=== PATIENT | female | born 1995 | race Caucasian/White ===

== ENCOUNTER 2022-01-25 10:16 | Outpatient (CLI) | payer BC, SELFPAY ==
--- NOTE | ~2022-01-25 | US_ITS ---
US breast LT limited DATE: 01/25/2022 10:44 INDICATION: Patient felt a lump at 11:00, since resolved TECHNIQUE: Real-time imaging targeted at area of previous complaint of left breast lump at 11:00 COMPARISON: None FINDINGS: No suspicious mass or shadowing, cyst or other significant sonographic abnormality is ident ified at the area of prior clinical complaint of lump at 11:00. IMPRESSION: BI-RADS Category 1: Negative Recommendation: Routine mammographic screening beginning at age 40 Reviewed, dictated and finalized at [facility]. Reviewed, dictated and finalized at location [facility].
== END 2022-01-25 10:17 | disposition home or self-care (01) ==
LOC: ANHIMG 10:22
PROVIDERS: PCP Physician Assistant; Visit Provider Physician Assistant
DX: N63.20 Unspecified lump in the left breast, unspecified quadrant (principal)
CPT/HCPCS: 76642

== ENCOUNTER 2022-01-27 10:01 | Emergency (ER) | payer BC, SELFPAY ==
[2022-01-27] VITALS (14 sets, daily range): BP systolic 118–148; BP diastolic 72–84; PULSE 57–80; RESP 10–25; TEMP 36.3–36.7; O2SAT 99–100
--- NOTE | ~2022-01-27 | XR_ITS ---
EXAMINATION: XR chest 2V DATE: 01/27/2022 10:40 INDICATION: Chest pain TECHNIQUE: PA and lateral views of the chest are obtained. COMPARISON: None available FINDINGS: The lungs are free of acute opacities. There is no pleural effusion or pneumothorax. The ca rdiomediastinal silhouette is normal. The visualized bones and soft tissues are unremarkable. IMPRESSION: 1. No acute cardiopulmonary abnormality. Reviewed, dictated and finalized at [facility].
--- NOTE | 2022-01-27 10:03 | ECG_ITS ---
Measurements Intervals Holcomb Rate: 75 P: 18 WA: 144 QRS: 41 QRSD: 97 T: 96 QT: 358 QTc: 400 Interpretive Statements SINUS RHYTHM NONSPECIFIC ST & T-WAVE ABNORMALITY- HIGH LATERAL LEADS BASELINE ARTIFACT- I, AVR, AVL BORDERLINE ECG Electronically Signed On 01-27-2022 12:28:03 CDT by Terry Gee D.O.
[2022-01-27 10:56] LABS: Basophils Absolute Auto 0.1 K/mm3 (0.0-0.1); Basophils Percent Auto 1.6 % (0.2-1.2); Eosinophils Absolute Auto 0.2 K/mm3 (0-0.3); Eosinophils Percent Auto 3.3 % (0-4.4); Hematocrit 43.4 % (37.0-47.0); Hemoglobin 13.7 g/dL (12.0-15.0); Immature Granulocyte Absolute 0.01 K/mm3 (0.00-0.031); Immature Granulocyte Percent A 0.1 % (0-0.5); Lymphocytes Absolute Auto 1.62 K/mm3 (0.9-3.2); Lymphocytes Percent Auto 24.2 % (18.3-44.2); Mean Corpuscular HGB Conc 31.6 g/dl (32-36); Mean Corpuscular Hemoglobin 27.9 pg (26-34); Mean Corpuscular Volume 88.4 fl (80-100); Monocytes Absolute Auto 0.5 K/mm3 (0.1-0.6); Monocytes Percent Auto 7.3 % (2.6-8.5); Neutrophils Absolute Auto 4.3 K/mm3 (1.3-6.7); Neutrophils Percent Auto 63.5 % (45.5-73.1); Platelet Count Result 264 k/mm3 (150-375); Red Blood Count 4.91 M/mm3 (4.2-5.4); White Blood Count 6.7 K/mm3 (4.5-10.0)
[2022-01-27 11:11] LABS: INR 1.1; Prothrombin Time 13.9 Seconds (11.1-14.7)
[2022-01-27 11:12] LABS: Alanine Aminotransferase 13 U/L (4-35); Albumin Level 4.6 g/dL (3.5-5.1); Alkaline Phosphatase 56 U/L (38-126); Anion Gap 5 mmol/L (8-16); Aspartate Amino Transferase 21 U/L (14-36); Bilirubin,Total 0.5 mg/dL (0.2-1.3); Blood Urea Nitrogen 15 mg/dL (7-17); Calcium 9.4 mg/dL (8.4-10.2); Carbon Dioxide 28 mmol/L (22-30); Chloride 106 mmol/L (98-107); Estimated CRCL calculation 117 ml/min; Estimated Glomerular Filt Rate > 60; Glucose 98 mg/dL (65-110); Lipase 50 U/L (23-300); Partial Thromboplastin Time 27.1 SECONDS (22.3-36.8); Potassium 4.2 mmol/L (3.4-5.0); Sodium 139 mmol/L (137-145)
[2022-01-27 11:23] LABS: Troponin I < 0.012 ng/mL (0.000-0.034)
--- NOTE | 2022-01-27 11:53 | ED.CHESTPAIN ---
HPI - Chest Pain General Chief Complaint: Chest Pain <BJORN Capone Last Filed: 01/27/22 14:01> Stated Complaint: cp <BJORN Capone Last Filed: 01/27/22 14:01> Time Seen by Provider: 01/27/22 11:11 <BJORN Capone Last Filed: 01/27/22 14:01> Source: patient <BJORN Capone Last Filed: 01/27/22 14:01> Mode of arrival: ambulatory <BJORN Capone Last Filed: 01/27/22 14:01> Limitations: no limitations <BJORN Capone Last Filed: 01/27/22 14:01> History of Present Illness HPI narrative: Patient is a 26 y/o female who presents to the ED with report of bilateral chest pain for the past 1 week. Patient reports having intermittent pain across her chest for the past 1 week. She states the pain lasts for few seconds at a time and is sharp but still mild in severity. She has not tried any pain medicine for the pain. She saw her primary care doctor about this and was told it may be due to hormones. Over the last 2 days, she has had issues with her breathing reportedly. She denies having any actual shortness of breath or difficultly breathing, but reports she has been more aware of her breathing and feels like she is breathing 'unnaturally.' No fever, chills, cough, cold symptoms, nausea, vomiting, abdominal pain, BLE pain or edema. Patient mentions she was recently restarted on Viibryd for her depression around the time the pain first started occuring. She has since stopped taking this. <BJORN Capone Last Filed: 01/27/22 14:01> Related Data Allergies/Adverse Reactions: Allergies Allergy/AdvReac Type Severity Reaction Status Date / Time clarithromycin [From Biaxin] Allergy Anaphylaxis Verified 01/27/22 11:14 <BJORN Capone Last Filed: 01/27/22 14:01> Review of Systems Review of Systems: CONSTITUTIONAL: Denies fever, chills, or sweats. ENT: Denies rhinorrhea, congestion. CARDIOVASCULAR: Reports pain across chest. Denies palpitations, or BLE edema. RESPIRATORY: Reports unnatural breathing. Denies cough, difficulty breathing, SOB. GASTROINTESTINAL: Denies abdominal pain, nausea, vomiting, or diarrhea. MUSCULOSKELETAL: Denies BLE pain, back pain. NEUROLOGIC: Denies headache, numbness, or weakness. <Emily Giles PA-C - Last Filed: 01/27/22 14:01> All systems reviewed & are unremarkable except as noted in HPI and below <Emily Giles PA-C - Last Filed: 01/27/22 14:01> PMFSH Past Medical History Medical History: Medical History (Updated 01/27/22 @ 13:58 by Emily Giles PA-C) Anxiety Depression <Emily Giles PA-C - Last Filed: 01/27/22 14:01> Surgical History Surgical History: Surgical History (Updated 01/27/22 @ 13:58 by Emily Giles PA-C) No pertinent past surgical history <Emily Giles PA-C - Last Filed: 01/27/22 14:01> Social History Social History: Social History (Updated 01/27/22 @ 13:58 by Emily Giles PA-C) Smoking status: Never smoker <Emily Giles PA-C - Last Filed: 01/27/22 14:01> Exam Narrative: GENERAL: Well appearing, well-nourished, non-toxic, in no acute distress. HEAD: Normocephalic, atraumatic. NECK: Supple. No adenopathy, no masses. RESPIRATORY: Airway patent, respirations nonlabored. Clear to auscultation bilaterally, no rales, rhonchi, wheezing. CARDIOVASCULAR: Regular rate and rhythm without murmurs, rubs, or gallops. Peripheral pulses 2+ and equal bilaterally. ABDOMINAL: Soft, nontender, nondistended, no hepatosplenomegaly. Normoactive BS. MUSCULOSKELETAL: Moves all extremities. Strength/ROM intact without gross deformities or TTP. No edema. No calf tenderness. No chest wall tenderness to palpation. SKIN: Warm, dry, normal color. No rashes. NEURO: A&O X3. Speech clear. Cranial nerves II-XII grossly intact. Steady gait. No ataxic movements. PSYCHIATRIC: Appropriate mood and affect. Normal interaction. <Emily Giles PA-C - Last Filed:
[2022-01-27 13:35] LABS: Troponin I < 0.012 ng/mL (0.000-0.034)
== END 2022-01-27 14:09 | disposition home or self-care (01) ==
PROVIDERS: Physician Assistant; Emergency Provider Emergency Medicine; PCP Physician Assistant
DX: R07.89 Other chest pain (principal); F41.9 Anxiety disorder, unspecified; F32.A Depression, unspecified; R94.31 Abnormal electrocardiogram [ECG] [EKG]
CPT/HCPCS: 36415; 71046; 80053; 83690; 84484; 85025; 85380; 85610; 85730; 93005; 99284

== ENCOUNTER 2022-02-22 10:20 | Outpatient (CLI) | payer BC, SELFPAY ==
--- NOTE | ~2022-02-22 | US_ITS ---
US axilla RT DATE: 02/22/2022 10:53 INDICATION: Axillary lymphadenopathy TECHNIQUE: Real-time imaging and color flow imaging of the right axillary area COMPARISON: None FINDINGS: There is an indeterminate heterogeneous hypoechoic solid lesion with very prominent vascula rity on color flow imaging, situated in the right axilla, measuring up to 3 x 10 x 12 mm IMPRESSION: Irregular solid vascular mass of right axilla smell consider ultrasound-guided biopsy Reviewed, dictated and finalized at [facility]. Reviewed, dictated and finalized at [facility]. IMPRESSION: Irregular solid vascular mass of right axilla smell consider ultras ound-guided biopsy
== END 2022-02-22 10:21 | disposition home or self-care (01) ==
LOC: ANHIMG 10:20
PROVIDERS: PCP Physician Assistant; Visit Provider Physician Assistant
DX: R59.0 Localized enlarged lymph nodes (principal)
CPT/HCPCS: 76882

== ENCOUNTER 2022-02-25 12:55 | Outpatient (CLI) | payer BC, SELFPAY ==
--- NOTE | ~2022-02-25 | US_ITS ---
EXAMINATION: US_BXSTAXLIMG_US DATE: 02/25/2022 14:09 INDICATION: Right axillary mass. TECHNIQUE: The procedure including the risks, benefits, and alternatives was discussed with the patie nt. Risks discussed included bleeding and infection. The patient understood the risks and agreed to p roceed. The skin overlying the right axilla was prepped and draped in usual sterile fashion. Anesthe tic was administered with 1% lidocaine subcutaneously. An 18 gauge core biopsy needle was then used to obtain 3 core biopsy specimens under continuous sonographic guidance. The entry site was cleaned a nd dressed. There were no immediate complications. FINDINGS: Ultrasound images demonstrate the needle in a 13 x 3 x 10 mm mass in right axilla. IMPRESSION: 1. Ultrasound-guided core needle biopsy of a right axillary mass. Reviewed, dictated and finalized at location [facility].
== END 2022-02-25 12:56 | disposition home or self-care (01) ==
PROVIDERS: PCP Physician Assistant; Visit Provider Physician Assistant
DX: R22.2 Localized swelling, mass and lump, trunk (principal)
CPT/HCPCS: 20999; 76942; 88305

== ENCOUNTER 2023-01-06 17:58 | Emergency (ER) | payer BC, SELFPAY ==
[2023-01-06 18:06] VITALS: BP 132/91; PULSE 110; RESP 16; TEMP 36.9; O2SAT 100
--- NOTE | 2023-01-06 18:45 | ED.EYEPROB ---
HPI - Eye Problem General Chief complaint: Eye Problems <BJORN Davis Last Filed: 01/06/23 21:47> Stated complaint: conjunctivitis, blurry vision <BJORN Davis Last Filed: 01/06/23 21:47> Time Seen by Provider: 01/06/23 18:17 <BJORN Davis Last Filed: 01/06/23 21:47> Source: patient <BJORN Davis Last Filed: 01/06/23 21:47> Mode of arrival: ambulatory <BJORN Davis Last Filed: 01/06/23 21:47> Limitations: no limitations <BJORN Davis Last Filed: 01/06/23 21:47> History of Present Illness HPI Narrative: This is a 27-year-old female presents to the ED with chief complaint of bilateral eye irritation x3 days.. She was sent here by urgent care due to blurred vision. Patient states that her vision became blurry after they use the penlight during the exam. She states that this started with irritation primarily on the right which then moved to the left and now is in both eyes. Reports redness and drainage from both eyes. She states that she has had some swelling in the eyelids as well. She reports mainly having watery discharge from both eyes, however she does wake up in the mornings with goopy stuff coming out of the right eye. She states her 5-year-old son has had the exact same symptoms at home. She reports associated congestion and rhinorrhea. Denies fevers. Denies any injury to the eyes. <Phani Richey PA-C - Last Filed: 01/06/23 21:47> Related Data Allergies/adverse reactions: Allergies Allergy/AdvReac Type Severity Reaction Status Date / Time clarithromycin [From Biaxin] Allergy Anaphylaxis Verified 01/27/22 11:14 <BJORN Davis Last Filed: 01/06/23 21:47> Review of Systems Review of Systems: CONSTITUTIONAL: Denies fever, chills, or sweats. EYES: See HPI ENT: See HPI SKIN: Denies rash or itching. MUSCULOSKELETAL: Denies back pain, joint pain, or myalgia. NEUROLOGIC: Denies headache, numbness, dizziness, or weakness. PSYCHIATRIC: Denies anxiety or depression. <Phani Richey PA-C - Last Filed: 01/06/23 21:47> PMFSH Past Medical History Medical History: Medical History (Updated 01/07/23 @ 00:01 by Derek Park) Anxiety Depression <Phani Richey PA-C - Last Filed: 01/06/23 21:47> Surgical History Surgical History: Surgical History (Updated 01/27/22 @ 13:58 by Emily Cisneros PA-C) No pertinent past surgical history <Phani Richey PA-C - Last Filed: 01/06/23 21:47> Social History Social History: Social History (Updated 01/27/22 @ 13:58 by Emily Cisneros PA-C) Smoking status: Never smoker <Phani Richey PA-C - Last Filed: 01/06/23 21:47> Exam Narrative: GENERAL: Well-appearing, well-nourished, and in no acute distress. HEAD: Normocephalic, atraumatic. EYES: PERRLA and EOMI. bilateral conjunctival injection. Clear drainage bilaterally. Visual acuity 20/40 OD and 20/30 OS. ENT: Congestion and rhinorrhea present. Mucous membranes moist. Oropharynx without tonsillar hypertrophy exudate or other lesions. Postnasal drainage present. EXTREMITIES: Normal range of motion. No edema. SKIN: Warm, dry, no rash. NEURO: Alert and oriented x3. No focal deficits. PSYCH: Anxious mood and appropriate affect. 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 I performed all aspects of the MDM as documented. 27-year-old female presenting with bilateral eye redness, tearing, itchiness. Associated with viral URI symptoms. Her son has similar symptoms. Exam is consistent with viral conjunctivitis. No evidence of periorbital or o
[2023-01-06 20:35] VITALS: BP 130/89; PULSE 97; RESP 18; O2SAT 99
== END 2023-01-06 20:36 | disposition home or self-care (01) ==
PROVIDERS: Emergency Provider Physician Assistant; PCP Physician Assistant
DX: H10.33 Unspecified acute conjunctivitis, bilateral (principal)
CPT/HCPCS: 99283

== ENCOUNTER 2023-10-13 00:48 | Day surgery (SDC) | payer BC, SELFPAY ==
[2023-07-19 09:09] VITALS: BMI 29.9
[2023-09-22 11:10] VITALS: BMI 29.2
--- NOTE | 2023-10-11 08:34 | SUR.PREOP ---
Patient called regarding upcoming procedure. Reviewed preop instructions, appointment times, and procedure prep.
[2023-10-13 08:50] VITALS: BP 143/89; PULSE 105; RESP 20; TEMP 36.7; O2SAT 100
[2023-10-13] MEDS: LACTATED RINGERS 1,000 ML 150 ML IV CONT (09:08)
--- NOTE | 2023-10-13 09:18 | WPDANESEPPF ---
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 Patient Data Age: 28 Gender: F Height: 1.68 m Weight: 87.2 kg Last Vital Signs Temp 98.1 F 10/13/23 08:50 Pulse 105 H 10/13/23 08:50 Resp 20 10/13/23 08:50 BP 143/89 H 10/13/23 08:50 Pulse Ox 100 10/13/23 08:50 O2 Del Method Room Air 10/13/23 08:50 Allergies Allergy/AdvReac Type Severity Reaction Status Date / Time clarithromycin [From Biaxin] Allergy Anaphylaxis Verified 10/13/23 08:49 Home Medications Medication Instructions Recorded Confirmed Type clonazepam 1 mg tablet 1 mg PO DAILY PRN Anxiety 06/05/23 09/22/23 History lamotrigine 100 mg tablet 100 mg PO DAILY 06/05/23 09/22/23 History lithium carbonate 300 mg capsule 300 mg PO BID 06/05/23 09/22/23 History norethindrone 1 mg-ethinyl 1 tablet PO DAILY 06/05/23 09/22/23 History estradiol 10 mcg (24)-iron 10 mcg(2) tablet (Lo Loestrin Fe) quetiapine 50 mg tablet 50 mg PO HS 06/05/23 09/22/23 History levothyroxine 75 mcg tablet 75 mcg PO DAILY #90 tabs 10/10/23 Rx Patient hx anesthesia problems: none Family hx anesthesia problems: none Results Review: All pre-operative results and documents have been reviewed as part of the pre-operative evaluation. [facility] Past Medical History Medical History Anxiety Depression Surgical History Surgical History No pertinent past surgical history Family History Family History Mother Depression Diabetes mellitus Colon cancer Sibling Diabetes mellitus Depression Social History Social History Smoking status: Never smoker Alcohol intake: current Alcohol use details: rarely Substance use: never Substance use type: does not use Lack of Transportation: No Lack of Food: Never True Current Housing: I Have Housing Concerned About Future Housing: No Difficulty Paying Gas/Electric Bills: No Difficulty Paying for Meds: No Education: High School Diploma/GED Difficulty w/ Childcare or Family Care: No Living arrangements: with family Occupation/Education: other Gender identity (if verbalized by the patient): Female Spiritual care concerns: No Anes - Eval Final PreProcedure Day of Procedure 10/13/23 09:18 Patient weight: obese Heart: regular rate and rhythm Lungs: clear to auscultation Airway: Mallampati scale class II Neurological: alert and oriented Last oral intake: >/= 8 hours ASA classification: II Emergent: no Anesthetic plan: proceed Anesthesia type and monitoring: general GIVS and standard monitoring Results Review: All pre-operative results and documents have been reviewed as part of the pre-operative evaluation. Informed Consent: The patient's anesthetic plan and its attendant risks and benefits were discussed with the patient/family/POA. Questions were solicited and answers provided to the satisfaction of the patient/family/POA.
--- NOTE | 2023-10-13 09:25 | PM.HPGS ---
History of Present Illness History of Present Illness Consent: Risks, benefits, and alternatives have been discussed and questions answered. Patient agrees to proceed with procedure. 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 Narrative: Sandrine Bonds is a 28 year old female here for first colonoscopy, mother had colon cancer and also family members at father side Review of Systems Constitutional: Constitutional: Denies headache(s) and Denies weakness Eyes: Eyes: Denies blurry vision ENT: Reports Normal hearing present, Denies headache(s) and Denies neck pain Cardiovascular: Cardiovascular: Denies chest pain and Denies dyspnea Respiratory: Respiratory: Denies dyspnea Gastrointestinal: Gastrointestinal: Reports no additional gastrointestinal complaints Genitourinary: Genitourinary: Denies dysuria Musculoskeletal: Musculoskeletal: Denies neck pain Integumentary/Breasts: Skin/Breast: Denies dry skin Neurologic: Reports Normal hearing present, Denies headache(s) and Denies weakness Psychiatric: Psychiatric: Denies anxiety Endocrine: Endocrine: Denies change in body appearance Hematologic/Lymphatic: Hematologic/Lymphatic: Denies easy bleeding Allergic/Immunologic: Allergic/Immunologic: Denies urticaria PMF Past Medical History Medical History (Updated 10/13/23 @ 09:26 by Valeriano Myles MD) Anxiety Depression Family history of colon cancer in mother Surgical History Surgical History No pertinent past surgical history Family History Family History Mother Depression Diabetes mellitus Colon cancer Sibling Diabetes mellitus Depression Social History Social History Smoking status: Never smoker Alcohol intake: current Alcohol use details: rarely Substance use: never Substance use type: does not use Lack of Transportation: No Lack of Food: Never True Current Housing: I Have Housing Concerned About Future Housing: No Difficulty Paying Gas/Electric Bills: No Difficulty Paying for Meds: No Education: High School Diploma/GED Difficulty w/ Childcare or Family Care: No Living arrangements: with family Occupation/Education: other Gender identity (if verbalized by the patient): Female Spiritual care concerns: No Meds Home Medications and Allergies Home Medications Medication Instructions Recorded Confirmed Type clonazepam 1 mg tablet 1 mg PO DAILY PRN Anxiety 06/05/23 09/22/23 History lamotrigine 100 mg tablet 100 mg PO DAILY 06/05/23 09/22/23 History lithium carbonate 300 mg capsule 300 mg PO BID 06/05/23 09/22/23 History norethindrone 1 mg-ethinyl 1 tablet PO DAILY 06/05/23 09/22/23 History estradiol 10 mcg (24)-iron 10 mcg(2) tablet (Lo Loestrin Fe) quetiapine 50 mg tablet 50 mg PO HS 06/05/23 09/22/23 History levothyroxine 75 mcg tablet 75 mcg PO DAILY #90 tabs 10/10/23 Rx Allergies Allergy/AdvReac Type Severity Reaction Status Date / Time clarithromycin [From Biaxin] Allergy Anaphylaxis Verified 10/13/23 08:49 Vital Signs Vital Signs - 24 hr 10/13/23 08:50 Temperature 98.1 F Pulse Rate 105 H Respiratory Rate 20 Blood Pressure 143/89 H Pulse Oximetry 100 Oxygen Delivery Room Air Exam Const: General: comfortable and no acute distress HENMT: Face/Nose/Sinus: Normal nares present Eyes: General: appearance normal, both eyes and all related structures Neck: Neck: no JVD Resp: Auscultation: clear to auscultation bilaterally Cardio: Rate: regular rate Rhythm: regular rhythm GI: Inspection: non-distended GI Palp: Yes Soft to palpation Skin: General skin exam: normal color Neuro: General: gait normal Speech: normal speech Extrem: General: normal to inspection Psych: Mental Status: mental status grossly nor
[2023-10-13 09:45] VITALS: BP 133/111; PULSE 99; RESP 24; O2SAT 100
[2023-10-13 09:55] VITALS: BP 129/89; PULSE 79; RESP 20; O2SAT 99
[2023-10-13 10:05] VITALS: BP 122/79; PULSE 68; RESP 20; O2SAT 100
== END 2023-10-13 10:16 | disposition home or self-care (01) ==
PROVIDERS: Visit Provider Internal Medicine Gastroenterology
PROC: 0DJD8ZZ Inspection of Lower Intestinal Tract, Via Natural or Artificial Opening Endoscopic (ICD-10-PCS; CPT 45378; principal; 2023-10-13 10:00)
DX: Z12.11 Encounter for screening for malignant neoplasm of colon (principal); Z80.0 Family history of malignant neoplasm of digestive organs; K64.8 Other hemorrhoids
CPT/HCPCS: 45378; J2704; J7120